=== PATIENT | male | born 1985 | race Caucasian/White ===

== ENCOUNTER 2020-04-26 00:01 | Emergency (ER) | payer OTHER ==
[~2020-04-26] VITALS: Ht 180.3 cm; Wt 65.8 kg
[~2020-04-26 00:01] MED LIST: ALPR2TAB2 PO; METH40TA2 PO; TRAZ-257 PO
[2020-04-26] MEDS ORDERED: MORPHINE SULFATE INJ 4 MG/ML DISP.SYRIN IM ONE (01:00)
[2020-04-26] MEDS ORDERED: HYDROCODONE/APAP 5/325MG TABLET ONE (01:25)
[2020-04-26] MEDS ORDERED: HYDROCODONE/APAP 5/325MG TABLET PO ONE (01:30)
[2020-04-26 02:31] VITALS: BP 122/78
== END 2020-04-26 02:30 ==
LOC: ER 00:03
DX: S52.391A Other fracture of shaft of radius, right arm, initial encounter for closed fracture (principal); S52.611A Displaced fracture of right ulna styloid process, initial encounter for closed fracture; R51.9 Headache, unspecified; F32.9 Major depressive disorder, single episode, unspecified; F10.10 Alcohol abuse, uncomplicated; Y90.9 Presence of alcohol in blood, level not specified; Z79.899 Other long term (current) drug therapy; Z87.891 Personal history of nicotine dependence; V49.59XA Passenger injured in collision with other motor vehicles in traffic accident, initial encounter; Y93.89 Activity, other specified; Y92.488 Other paved roadways as the place of occurrence of the external cause; Y99.8 Other external cause status
CPT/HCPCS: 70450-TC; 70480-TC; 73030-TC; 73080-TC; 73090-TC

== ENCOUNTER 2020-04-26 04:11 | Emergency (ER) | payer OTHER ==
[~2020-04-26] VITALS: Ht 180.3 cm; Wt 65.8 kg
[2020-04-26 04:13] VITALS: BP 148/88
--- NOTE | 2020-04-26 04:15 | NUR ---
[facility]. pt aaox4 breathing evenly and unlabored. Pt states " i had covid 2months ago". Pt denies sob, fever, or cough. Pt attached to monitor and pox. Call light within reach will continue to monitor.
--- NOTE | 2020-04-26 04:21 | NUR ---
COVID SWAB SENT TO THE LAB
--- NOTE | 2020-04-26 05:41 | NUR ---
Pt taken into custody by [employer]. Patient discharged to in stable condition. Written and verbal after care instructions given. Patient verbalizes understanding of instruction. Pt ambulatory with a steady gait
== END 2020-04-26 05:41 ==
LOC: ER 04:13
DX: Z02.89 Encounter for other administrative examinations (principal); Z20.822 Contact with and (suspected) exposure to COVID-19; Z86.16 Personal history of COVID-19; Z87.891 Personal history of nicotine dependence
CPT/HCPCS: 87426; 99283; C9803

== ENCOUNTER 2021-09-15 15:19 | Emergency (ER) | payer OTHER ==
[~2021-09-15] VITALS: Ht 180.3 cm; Wt 75.3 kg
--- NOTE | 2021-09-15 16:00 | NUR ---
ESPERANZA PIEDRA "in a sober Living Facility was found unresponsive with pin point pupils they gave Narcan1 spray an hour ago and was awake by time we respond. PLACED ON BED, AAOX4, BREATHING EVEN AND UNLABORED.
--- NOTE | 2021-09-15 19:00 | NUR ---
Pt AAO, Appropriate/responsive [facility] Ambulatory BRP. Gait even and steady. Refusing continuity of care at this time and wants to leave AMA
--- NOTE | 2021-09-15 19:09 | NUR ---
Pt No longer in bed. Eloped
[2021-09-15 19:10] VITALS: BP 118/70
== END 2021-09-15 19:10 | disposition home or self-care (01) ==
LOC: ER 15:47
DX: R40.4 Transient alteration of awareness (principal); T40.2X1A Poisoning by other opioids, accidental (unintentional), initial encounter; F32.A Depression, unspecified; Y92.89 Other specified places as the place of occurrence of the external cause
CPT/HCPCS: 82962-TC

== ENCOUNTER 2023-06-25 13:14 | Emergency (ER) | payer OTHER ==
[~2023-06-25] VITALS: Ht 180.3 cm; Wt 72.6 kg
[2023-06-25] MEDS ORDERED: NALO4SPR BNOSTRILS (16:02)
[2023-06-25 16:04] VITALS: BP 118/77; TEMP 98; O2SAT 99
== END 2023-06-25 16:05 | disposition home or self-care (01) ==
LOC: ER 13:20
DX: F12.129 Cannabis abuse with intoxication, unspecified (principal); F32.A Depression, unspecified